=== PATIENT | female | born 1990 | race Caucasian/White ===

== ENCOUNTER 2016-11-01 10:00 | Observation (INO) | payer MEDICAID | END 2016-11-01 11:20 | disposition home or self-care (01) | DRG 566 | LOC: LDRP 10:00 | PROVIDERS: ADMIT Obstetrics & Gynecology; ATTEND Obstetrics & Gynecology | DX: O36.8130 Decreased fetal movements, third trimester, not applicable or unspecified (principal); Z3A.28 28 weeks gestation of pregnancy | CPT/HCPCS: 59025; 81002; G0378 ==

== ENCOUNTER 2016-12-07 19:11 | Observation (INO) | payer MEDICAID ==
[2016-12-07 21:39] LABS: Urine Bilirubin Negative (Negative); Urine Blood Negative /uL (Negative); Urine Color Yellow (Yellow); Urine Glucose Normal (Normal); Urine Ketone Negative (Negative); Urine Nitrite Negative (Negative); Urine RBC None Seen /hpf (0 - 4); Urine Squamous Epithelial Cell FEW /hpf (<5); Urine Urobilinogen Normal (Negative); Urine pH 7.5 (5.0-8.0)
== END 2016-12-07 20:15 | disposition home or self-care (01) | DRG 566 ==
LOC: LDRP 19:11
PROVIDERS: ADMIT Obstetrics & Gynecology; ATTEND Obstetrics & Gynecology
DX: O26.893 Other specified pregnancy related conditions, third trimester (principal); M54.9 Dorsalgia, unspecified; R10.9 Unspecified abdominal pain; Z3A.33 33 weeks gestation of pregnancy; W19.XXXA Unspecified fall, initial encounter; Y93.89 Activity, other specified; Y92.89 Other specified places as the place of occurrence of the external cause; Y99.8 Other external cause status
CPT/HCPCS: 59025; 76818; 80307; 81001; 81002; G0378

== ENCOUNTER 2017-01-18 01:18 | Inpatient (IN) | payer MEDICAID ==
[~2017-01-18] VITALS: Ht 160 cm; Wt 77.1 kg
[2017-01-18] MEDS ORDERED: LACT. RINGERS/OXYTOCIN 20UNITS 1,000 ML IV SCH ×2 (02:00→04:34)
[2017-01-18] MEDS ORDERED: NALBUPHINE HCL 10 MG/1ml INJECTION IV PRN (02:00)
[2017-01-18] MEDS ORDERED: WITCH HAZEL-GLYCERIN PAD TOP PRN (02:00)
[2017-01-18] MEDS ORDERED: LIDOCAINE 2%HCL (LOCAL ANESTH.) INJ 20ML MDV IJ ONE (02:00)
[2017-01-18] MEDS ORDERED: PHISODERM TOP SOLN 240ML BTL TOP PRN (02:00)
[2017-01-18] MEDS ORDERED: LACTATED RINGER'S 1,000 ML IV SCH (02:00)
[2017-01-18] MEDS ORDERED: DERMOPLAST 60ML BOTTLE TOP PRN (02:00)
[2017-01-18 02:43] LABS: Basophils # (auto) 0.1 uL; Basophils % (auto) 0.7 % (0.0-2.0); CONDITION Y; Eosinophils # (auto) 0 uL; Eosinophils % (auto) 0.4 % (0.0-7.0); Hemoglobin 13.7 g/dL (12.2-16.2); Lymphocytes # (auto) 2.3 uL; Lymphocytes % (auto) 20.2 % (10.0-50.0); Mean Corpuscular Hgb Conc. 34.1 g/dL (32.0-36.0); Mean Corpuscular Volume 93.9 fL (80.0-100.0); Mean Platelet Volume 8.9 fL (7.4-10.4); Monocytes # (auto) 0.8 uL; Monocytes % (auto) 7.3 % (0.0-12.0); Neutrophils # (auto) 8.2 uL; Neutrophils % (auto) 71.4 % (37.0-80.0); Platelet Count (auto) 271 10^3/uL (140-450); Red Cell Distribution Width 14.2 % (11.6-16.0); White Blood Cell 11.5 10^3/uL (4.4-10.8)
[2017-01-18 02:46] LABS: Urine Bilirubin Negative (Negative); Urine Blood Negative /uL (Negative); Urine Color Yellow (Yellow); Urine Glucose Normal (Normal); Urine Ketone Negative (Negative); Urine Nitrite Negative (Negative); Urine RBC 3 /hpf (0 - 4); Urine Squamous Epithelial Cell FEW /hpf (<5); Urine Urobilinogen Normal (Negative)
[2017-01-18 03:02] LABS: INR 0.91 (0.9-1.15); Partial Thromboplastin Time 28.1 sec (22.64-33.71); Prothrombin Time 9.9 sec (9.37-12.3)
[2017-01-18 03:06] LABS: Albumin 2.7 g/dL (3.4-5.0); BUN/Creatinine Ratio 14.8; Calcium 8.4 mg/dL (8.5-10.1); Potassium 3.5 mmol/L (3.5-5.1)
[2017-01-18 03:08] LABS: Bilirubin, Total 0.4 mg/dL (0.2-1.0); Total Protein 7.5 g/dL (6.4-8.2)
[2017-01-18] MEDS ORDERED: PREN-96 PO (03:15)
[2017-01-18] MEDS ORDERED: TERBUTALINE SULFATE 1 MG/ML 1ML VIAL SC ONE (04:45)
[2017-01-18] MEDS: METHYLERGONOVINE MALEATE 0.2 MG/ML AMP IM PRN ×2 (09:00→09:28)
[2017-01-18] MEDS ORDERED: LACT. RINGERS/OXYTOCIN 20UNITS 500 ML IV ONE (09:21)
[2017-01-18] MEDS: ACETAMINOPHEN 325 MG TAB PO PRN ×2 (09:41→23:15)
[2017-01-18 11:55] VITALS: BP 116/72
[2017-01-18] MEDS: IBUPROFEN 600 MG TAB PO PRN ×2 (12:06→19:03)
[2017-01-18 15:37] VITALS: BP 108/64
[2017-01-18 18:30] VITALS: BP 112/71
[2017-01-18 23:00] VITALS: BP 112/67
[2017-01-19 02:35] VITALS: BP 99/53
[2017-01-19] MEDS: IBUPROFEN 600 MG TAB PO PRN (02:44)
[2017-01-19 07:28] VITALS: BP 101/67
[2017-01-19] MEDS: ACETAMINOPHEN 325 MG TAB PO PRN (07:47)
[2017-01-19] MEDS ORDERED: TETANUS-DIPTH-ACEL PERTUSSIS 0.5ML SYRG IM ONE ×2 (09:36→09:45)
== END 2017-01-19 10:05 | disposition home or self-care (01) | DRG 560 ==
LOC: LDRP 01:18 → OBSVTOIN 01:18 → LDRP 01:44
PROVIDERS: ADMIT Obstetrics & Gynecology; ATTEND Obstetrics & Gynecology
PROC: 10E0XZZ Delivery of Products of Conception, External Approach (ICD-10-PCS; principal; 2017-01-18)
DX: O80 Encounter for full-term uncomplicated delivery (principal); Z23 Encounter for immunization; Z37.0 Single live birth; Z3A.39 39 weeks gestation of pregnancy
CPT/HCPCS: 36415; 59025; 59409; 80053; 80307; 81001; 81002; 85025; 85610; 85730; 86850; 86900; 86901; 90715; 96361; 96366; 96372; J2590

== ENCOUNTER 2018-09-15 08:23 | Emergency (ER) | payer MEDICAID ==
[~2018-09-15] VITALS: Ht 160 cm; Wt 66.7 kg
[~2018-09-15 08:23] MED LIST: PREN-96 PO
[2018-09-15 08:39] VITALS: BP 128/71
[2018-09-15] MEDS ORDERED: ACETAMINOPHEN 325 MG TAB PO ONE (10:15)
== END 2018-09-15 10:36 | disposition home or self-care (01) ==
LOC: ER 08:26
DX: S29.011A Strain of muscle and tendon of front wall of thorax, initial encounter (principal); S46.912A Strain of unspecified muscle, fascia and tendon at shoulder and upper arm level, left arm, initial encounter; R51 Headache; F17.210 Nicotine dependence, cigarettes, uncomplicated; Z88.5 Allergy status to narcotic agent; V49.49XA Driver injured in collision with other motor vehicles in traffic accident, initial encounter; Y93.89 Activity, other specified; Y99.8 Other external cause status; Y92.488 Other paved roadways as the place of occurrence of the external cause
CPT/HCPCS: 70450; 71046; 73030

== ENCOUNTER 2020-04-16 18:10 | Emergency (ER) | payer MEDICAID, OTHER ==
[~2020-04-16] VITALS: Ht 162.6 cm; Wt 68.0 kg
[2020-04-16] MEDS ORDERED: HYDROcodone-ACET 5/325MG TAB PO ONE (20:15)
[2020-04-16] MEDS ORDERED: ONDANSETRON ODT 4 MG TAB PO ONE (20:15)
[2020-04-16 21:55] VITALS: BP 144/85
== END 2020-04-16 23:31 | disposition home or self-care (01) ==
LOC: ER 18:13
DX: S13.4XXA Sprain of ligaments of cervical spine, initial encounter (principal); S16.1XXA Strain of muscle, fascia and tendon at neck level, initial encounter; S46.911A Strain of unspecified muscle, fascia and tendon at shoulder and upper arm level, right arm, initial encounter; R51.9 Headache, unspecified; Z86.73 Personal history of transient ischemic attack (TIA), and cerebral infarction without residual deficits; V43.52XA Car driver injured in collision with other type car in traffic accident, initial encounter; Y93.89 Activity, other specified; Y92.69 Other specified industrial and construction area as the place of occurrence of the external cause; Y99.8 Other external cause status
CPT/HCPCS: 70450; 72125; 73030; 99285; Q0162

== ENCOUNTER 2023-04-06 22:42 | Emergency (ER) | payer MEDICAID, OTHER ==
[~2023-04-06] VITALS: Ht 162.6 cm; Wt 81.8 kg
[2023-04-06 22:53] VITALS: BP 109/66; PULSE 86; RESP 18; O2SAT 99
== END 2023-04-06 23:03 | disposition left against medical advice (07) ==
LOC: ER 22:42 → EDBD 22:42 → ER 23:03
DX: R56.9 Unspecified convulsions (principal); Z53.21 Procedure and treatment not carried out due to patient leaving prior to being seen by health care provider

== ENCOUNTER 2023-04-06 23:15 | Emergency (ER) | payer MEDICAID, OTHER ==
[~2023-04-06] VITALS: Ht 165.1 cm; Wt 71.8 kg
[2023-04-06 23:35] VITALS: BP 117/74; PULSE 89; RESP 18; O2SAT 97
== END 2023-04-07 07:18 | disposition left against medical advice (07) ==
LOC: ER 23:15
DX: R41.0 Disorientation, unspecified (principal); Z53.21 Procedure and treatment not carried out due to patient leaving prior to being seen by health care provider

== ENCOUNTER 2024-02-14 | Emergency (ER) | payer MEDICAID ==
[~2024-02-14] VITALS: Ht 172.7 cm; Wt 70.0 kg
[2024-02-14 01:10] VITALS: BP 115/88; PULSE 76; RESP 14; TEMP 98.6; O2SAT 97
[2024-02-14] MEDS: SODIUM CHLORIDE 0.9% 2,000 ML IV ONE (01:52)
[2024-02-14] MEDS: THIAMINE 100mg/ml INJ (200mg/2ml VIAL) IV ONE (01:57)
[2024-02-14] MEDS: ONDANSETRON HCL 4 MG/2 ML VIAL IV ONE (01:57)
== END 2024-02-14 06:11 | disposition home or self-care (01) ==
LOC: ER → EDBD → EDUNIT# → ER 06:11
DX: F10.129 Alcohol abuse with intoxication, unspecified (principal); Z86.73 Personal history of transient ischemic attack (TIA), and cerebral infarction without residual deficits; Z79.899 Other long term (current) drug therapy; Z88.5 Allergy status to narcotic agent; Y90.0 Blood alcohol level of less than 20 mg/100 ml
CPT/HCPCS: 36415; 80320; 96361; 96374; 96375; 99284; J2405; J3411; J7030